=== PATIENT | male | born 1995 | race Caucasian/White ===

== ENCOUNTER 2017-04-01 00:47 | Emergency (ER) | payer OTHER ==
[~2017-04-01] VITALS: Ht 172.7 cm; Wt 65.0 kg
[2017-04-01] VITALS (7 sets, daily range): BP systolic 103–156; BP diastolic 58–100; PULSE 68–92; RESP 16–18; TEMP 98.1–98.5; O2SAT 97–100
[~2017-04-01 00:47] MED LIST: 1-ME1LIQ PO; LAMO25TA PO; TRAZ50TA4 PO
[2017-04-01] MEDS ORDERED: ONDANSETRON HCL 4 MG/2 ML VIAL ONE (02:20)
[2017-04-01] MEDS ORDERED: LORazepam 2 MG/ML VIAL ONE (02:21)
[2017-04-01 03:36] LABS: AUTOMATED NEUTROPHIL # 3.7 TH/MM3 (1.8-7.7); BASOPHIL # 0.1 TH/MM3 (0-0.2); BASOPHIL % 1.1 % (0.0-2.0); EOSINOPHIL # 0.1 TH/MM3 (0-0.4); EOSINOPHIL % 1.8 % (0.0-4.0); HEMATOCRIT 42.6 % (39.0-51.0); HEMO FLAGS DIFF FINAL; LYMPH % 38.5 % (9.0-44.0); LYMPHOCYTE # 2.8 TH/MM3 (1.0-4.8); MEAN CELL VOLUME 87.6 FL (80.0-100.0); MEAN CORPUSCULAR HEMOGLOBIN 29.6 PG (27.0-34.0); MEAN CORPUSCULAR HGB CONC 33.8 % (32.0-36.0); MONO % 8.9 % (0.0-8.0); NEUT % 49.7 % (16.0-70.0); PLATELET COUNT 238 TH/MM3 (150-450); RED BLOOD COUNT 4.86 MIL/MM3 (4.50-5.90); RED CELL DISTRIBUTION WIDTH 13.2 % (11.6-17.2); WHITE BLOOD COUNT 7.4 TH/MM3 (4.0-11.0)
[2017-04-01 03:52] LABS: ALCOHOL 125 MG/DL (0-5); ALKALINE PHOSPHATASE 75 U/L (45-117); ALT (GPT) 38 U/L (12-78); ANION GAP 7 MEQ/L (5-15); AST (GOT) 22 U/L (15-37); BICARBONATE 29.1 MEQ/L (21.0-32.0); BLOOD UREA NITROGEN 9 MG/DL (7-18); CHLORIDE 110 MEQ/L (98-107); GLOMERULAR FILTRATION RATE 100 ML/MIN (>89); POTASSIUM 3.7 MEQ/L (3.5-5.1); SODIUM (NA) 146 MEQ/L (136-145); TOTAL BILIRUBIN ADULT 0.2 MG/DL (0.2-1.0)
[2017-04-01] MEDS ORDERED: LAMO25TA PO (03:54)
[2017-04-01] MEDS ORDERED: LORazepam 2 MG/ML VIAL IV PUSH ONE (04:15)
[2017-04-01] MEDS ORDERED: ONDANSETRON HCL 4 MG/2 ML VIAL IV PUSH ONE (04:15)
[2017-04-01] MEDS ORDERED: SODIUM CHLOR 0.9% 1000 ML INJ 1,000 ML IV ONE (04:15)
--- NOTE | 2017-04-01 04:43 | PD ---
HPI Chief Complaint: Alcohol/Drug Intoxication Time Seen by Provider: 03:29 Travel History International Travel<30 days: No Contact w/Intl Traveler<30days: No Traveled to known affect area: No History of Present Illness HPI 22-year-old male patient with history of bipolar disorder, presents to the ER today because he states that he is having suicidal thoughts, had put a gun to his own head but had not shot himself. He denies any ingestions, or homicidal ideation. He states that he has been trying to deal with his opiate addiction and has been trying to get help. He states he needs help. Modifying Factors: None Associated Signs & Symptoms: Suicidal ideation Risk Factors: Opiate addiction, psychiatric history PFSH Past Medical History Psychiatric: Yes (manic depression ) Tetanus Vaccination: Never Vaccinated Influenza Vaccination: No Past Surgical History Surgical History: No Previous Surgery Social History Alcohol Use: Yes Tobacco Use: No Substance Use: Yes (heroin, weed) Allergies-Medications (Allergen,Severity, Reaction): Coded Allergies: No Known Allergies (Unverified , 04/01/17) Reported Meds & Prescriptions Reported Meds & Active Scripts Active Reported Lamotrigine 25 Mg Tab 25 Mg PO BID Review of Systems Except as stated in HPI: all other systems reviewed are Neg Physical Exam Narrative GENERAL: Well-developed young white male patient currently in mild distress, tearful. Awake and oriented 3. SKIN: Focused skin assessment warm/dry. HEAD: Atraumatic. Normocephalic. EYES: Pupils equal and round. No scleral icterus. No injection or drainage. ENT: No nasal bleeding or discharge. Mucous membranes pink and moist. NECK: Trachea midline. No JVD. CARDIOVASCULAR: Regular rate and rhythm. No murmur appreciated. RESPIRATORY: No accessory muscle use. Clear to auscultation. Breath sounds equal bilaterally. GASTROINTESTINAL: Abdomen soft, non-tender, nondistended. Hepatic and splenic margins not palpable. MUSCULOSKELETAL: No obvious deformities. No clubbing. No cyanosis. No edema. NEUROLOGICAL: Awake and alert. No obvious cranial nerve deficits. Motor grossly within normal limits. Normal speech. PSYCHIATRIC: Appropriate mood and affect; insight and judgment normal. Data Data Last Documented VS Vital Signs Date Time Temp Pulse Resp B/P (MAP) Pulse Ox O2 Delivery O2 Flow Rate FiO2 04/01/17 03:55 98.1 82 18 103/59 (74) 99 Room Air Orders Orders Ondansetron Inj (Zofran Inj) (04/01/17 02:20) Lorazepam Inj (Ativan Inj) (04/01/17 02:21) Complete Blood Count With Diff (04/01/17 02:15) Alcohol (Ethanol) (04/01/17 02:15) Comprehensive Metabolic Panel (04/01/17 02:15) Lipase (04/01/17 02:15) Drug Screen, Random Urine (04/01/17 02:15) Ondansetron Inj (Zofran Inj) (04/01/17 04:15) Lorazepam Inj (Ativan Inj) (04/01/17 04:15) Sodium Chlor 0.9% 1000 Ml Inj (Ns 1000 M (04/01/17 04:15) Labs Laboratory Tests Test 04/01/17 02:15 White Blood Count 7.4 TH/MM3 Red Blood Count 4.86 MIL/MM3 Hemoglobin 14.4 GM/DL Hematocrit 42.6 % Mean Corpuscular Volume 87.6 FL Mean Corpuscular Hemoglobin 29.6 PG Mean Corpuscular Hemoglobin Concent 33.8 % Red Cell Distribution Width 13.2 % Platelet Count 238 TH/MM3 Mean Platelet Volume 8.6 FL Neutrophils (%) (Auto) 49.7 % Lymphocytes (%) (Auto) 38.5 % Monocytes (%) (Auto) 8.9 % Eosinophils (%) (Auto) 1.8 % Basophils (%) (Auto) 1.1 % Neutrophils # (Auto) 3.7 TH/MM3 Lymphocytes # (Auto) 2.8 TH/MM3 Monocytes # (Auto) 0.7 TH/MM3 Eosinophils # (Auto) 0.1 TH/MM3 Basophils # (Auto) 0.1 TH/MM3 CBC Comment DIFF FINAL Differential Comment Blood Urea Nitrogen 9 MG/DL Creatinine 0.94 MG/DL Random Glucose 86 MG/DL Total Protein 7.8 GM/DL Albumin 4.1 GM/DL Calcium Level 8.6 MG/DL Alkaline Phosphatase 75 U/L Aspartate Amino Transf (AST/SGOT) 22 U/L Alanine Aminotransferase (ALT/SGPT) 38 U/L Total Bilirubin 0.2 MG/DL Sodium Level 146 MEQ/L Potassium Level 3.7 MEQ/L Chloride Level 110 MEQ/L Carbon Dioxide Level 29.1 MEQ/L Anion Gap 7 MEQ/L Estimat Glomerular Filtration Rate 100 ML/MIN Lipase 130 U/L Urine Opiates Screen NEG Urine Barbiturates Screen NEG Urine Amphetamines Screen NEG Urine Benzodiazepines Screen POS Urine Cocaine Screen NEG Urine Cannabinoids Screen POS Ethyl Alcohol Level 125 MG/DL MDM Medical Decision Making Medical Screen Exam Complete: Yes Emergency Medical Condition: Yes Medical Record Reviewed: Yes Interpretation(s) Laboratory Tests Test 04/01/17 02:15 Monocytes (%) (Auto) 8.9 % (0.0-8.0) Sodium Level 146 MEQ/L (136-145) Chloride Level 110 MEQ/L (98-107) Urine Benzodiazepines Screen POS (NEG) Urine Cannabinoids Screen POS (NEG) Ethyl Alcohol Level 125 MG/DL (0-5) Differential Diagnosis Medical evaluation for psychiatric clearance. Suicidal ideation. Rule out intoxication Narrative Course Lab work shows that he has opiates in his system as well as benzodiazepine's. He has alcohol on his system as well. Lab work was otherwise unremarkable for significant metabolic issues. At this point, my plan would be to medically clear him for psychiatric evaluation. He had been given a small dose of Ativan and Zofran for nausea and vomiting, suspected to be related to opiate withdrawals. Abdomen was benign and I'm not suspecting an acute intra- abdominal process. Diagnosis Primary Impression: Opiate abuse, continuous Additional Impression: Suicidal ideation Condition: Stable Ally Patel MD Apr 01, 2017 04:43
[2017-04-01] MEDS ORDERED: ONDANSETRON HCL 4 MG/2 ML VIAL IV ONE (08:45)
[2017-04-01] MEDS ORDERED: lamoTRIgine 25 MG TAB PO ONE (12:30)
[2017-04-01] MEDS ORDERED: LORazepam 1 MG TAB PO PRN (12:30)
[2017-04-01] MEDS ORDERED: LORazepam 2 MG TAB PO PRN (12:30)
[2017-04-01] MEDS ORDERED: FLUMAZENIL 0.5 MG/5 ML VIAL IV PUSH PRN (12:30)
[2017-04-01] MEDS ORDERED: LORazepam 2 MG/ML VIAL IV PUSH PRN ×4 (12:30)
--- NOTE | 2017-04-01 13:00 | EKG ---
Date Performed: 04/01/2017 Time Performed: 02:15:40 PTAGE: 22 years EKG: Sinus rhythm POSSIBLE LEFT ATRIAL ENLARGEMENT POSSIBLE RIGHT VENTRICULAR CONDUCTION DELAY NONSPECIFIC T-WAVE ABNO RMALITY BORDERLINE ECG NO PREVIOUS TRACING DOCTOR: Kalen Klein Interpretating Date/Time 04/01/2017 12:57:45
[2017-04-01] MEDS ORDERED: clonazePAM 0.5 MG TAB PO ONE (22:00)
[2017-04-01] MEDS ORDERED: ONDANSETRON ODT 4 MG TAB PO ONE (22:00)
--- NOTE | 2017-04-01 23:14 | PD ---
Physical Exam Date Seen by Provider: Apr 01, 2017 Time Seen by Provider: 23:12 Narrative For full history and physical examination please see previous provider's notes. Data Data Last Documented VS Vital Signs Date Time Temp Pulse Resp B/P (MAP) Pulse Ox O2 Delivery O2 Flow Rate FiO2 04/01/17 19:37 81 16 156/100 (118) 100 04/01/17 18:00 Room Air 04/01/17 03:55 98.1 Orders Orders Ondansetron Inj (Zofran Inj) (04/01/17 02:20) Lorazepam Inj (Ativan Inj) (04/01/17 02:21) Complete Blood Count With Diff (04/01/17 02:15) Alcohol (Ethanol) (04/01/17 02:15) Comprehensive Metabolic Panel (04/01/17 02:15) Lipase (04/01/17 02:15) Drug Screen, Random Urine (04/01/17 02:15) Ondansetron Inj (Zofran Inj) (04/01/17 04:15) Lorazepam Inj (Ativan Inj) (04/01/17 04:15) Sodium Chlor 0.9% 1000 Ml Inj (Ns 1000 M (04/01/17 04:15) Electrocardiogram (04/01/17 02:15) Diet Regular Basic (04/01/17 Breakfast) Ondansetron Inj (Zofran Inj) (04/01/17 08:45) Alcohol Withdrawal Asmt-Ciwa ONCE (04/01/17 12:17) Flumazenil Inj (Romazicon Inj) (04/01/17 12:30) Lorazepam (Ativan) (04/01/17 12:30) Lorazepam Inj (Ativan Inj) (04/01/17 12:30) Lorazepam (Ativan) (04/01/17 12:30) Lorazepam Inj (Ativan Inj) (04/01/17 12:30) Lorazepam Inj (Ativan Inj) (04/01/17 12:30) Lorazepam Inj (Ativan Inj) (04/01/17 12:30) Lamotrigine (Lamictal) (04/01/17 12:30) Psych Screen (04/01/17 19:08) Clonazepam (Klonopin) (04/01/17 22:00) Ondansetron Odt (Zofran Odt) (04/01/17 22:00) Labs Laboratory Tests Test 04/01/17 02:15 White Blood Count 7.4 TH/MM3 Red Blood Count 4.86 MIL/MM3 Hemoglobin 14.4 GM/DL Hematocrit 42.6 % Mean Corpuscular Volume 87.6 FL Mean Corpuscular Hemoglobin 29.6 PG Mean Corpuscular Hemoglobin Concent 33.8 % Red Cell Distribution Width 13.2 % Platelet Count 238 TH/MM3 Mean Platelet Volume 8.6 FL Neutrophils (%) (Auto) 49.7 % Lymphocytes (%) (Auto) 38.5 % Monocytes (%) (Auto) 8.9 % Eosinophils (%) (Auto) 1.8 % Basophils (%) (Auto) 1.1 % Neutrophils # (Auto) 3.7 TH/MM3 Lymphocytes # (Auto) 2.8 TH/MM3 Monocytes # (Auto) 0.7 TH/MM3 Eosinophils # (Auto) 0.1 TH/MM3 Basophils # (Auto) 0.1 TH/MM3 CBC Comment DIFF FINAL Differential Comment Blood Urea Nitrogen 9 MG/DL Creatinine 0.94 MG/DL Random Glucose 86 MG/DL Total Protein 7.8 GM/DL Albumin 4.1 GM/DL Calcium Level 8.6 MG/DL Alkaline Phosphatase 75 U/L Aspartate Amino Transf (AST/SGOT) 22 U/L Alanine Aminotransferase (ALT/SGPT) 38 U/L Total Bilirubin 0.2 MG/DL Sodium Level 146 MEQ/L Potassium Level 3.7 MEQ/L Chloride Level 110 MEQ/L Carbon Dioxide Level 29.1 MEQ/L Anion Gap 7 MEQ/L Estimat Glomerular Filtration Rate 100 ML/MIN Lipase 130 U/L Urine Opiates Screen NEG Urine Barbiturates Screen NEG Urine Amphetamines Screen NEG Urine Benzodiazepines Screen POS Urine Cocaine Screen NEG Urine Cannabinoids Screen POS Ethyl Alcohol Level 125 MG/DL [facility] Medical Record Reviewed: Yes Supervised Visit with COLE[facility]: No Narrative Course Patient presented to the emergency Department for psychiatric evaluation. Patient was seen and evaluated in the emergency department, he was medically cleared. Patient was seen and evaluated by a psychiatrist. Patient is stable for discharge. Diagnosis Primary Impression: Opiate abuse, continuous Additional Impression: Suicidal ideation [facility] Instructions: General Instructions Additional Instruction: Avoid illicit drug use Follow-up with [facility] Return to emergency department for any new or worsening symptoms Med/Other Pt SpecificInfo: No Change to Meds Disposition: 01 DISCHARGE HOME Condition: Stable Skylar Orellana Apr 01, 2017 23:14
== END 2017-04-01 23:54 ==
LOC: NEPE 00:47 → NEPJ 23:54
DX: F11.10 Opioid abuse, uncomplicated (principal); R45.851 Suicidal ideations; R94.31 Abnormal electrocardiogram [ECG] [EKG]
CPT/HCPCS: 80053; 80307; 83690; 85025; 93005; 96361; 96374; 96375; 96376; 99284; J2060; J2405; J7030